=== PATIENT | female | born 1970 | race Two or more races ===

== ENCOUNTER 2016-06-19 12:45 | Emergency (ER) | payer OTHER ==
[2016-06-19 13:05] VITALS: BP 125/83; PULSE 106; TEMP 98.1; BMI 31.2
--- NOTE | 2016-06-19 13:47 | PDOC ---
History of Present Illness - General History Source: Patient, Old Records Exam Limitations: No Limitations - History of Present Illness Initial Comments: 06/19/16 13:58 The patient is a 46-year-old woman with a past medical history of anemia, hypertension, gastroesophageal reflux disorders, depression who presents to the emergency department via walk-in for further evaluation of persistent abdominal pain since yesterday. No recent fall, trauma, strenuous activity,m recent travel and sick contacts. She reports experiencing similar symptoms in the past for which she was informed it was related to muscle spasms. She described her abdominal pain as sharp and cramping in nature, non-radiating and located over the mid epigastrium with a rated 10/10 in severity. Her pain is exacerbated when walking/bending. She also reports associated symptoms of subjective fevers , an episode of diaphoresis and constipation. She expresses concern, as in the past, her symptoms subsequently resolved on its own,however, upon this presentation her symptoms have remained constant. She denies chills, generalized weakness. She denies chest pain, shortness of breath, cough She denies nausea, vomiting, diarrhea, dysuria, hematuria, urinary frequency and urgency, flank pain, vaginal discharge/vaginal bleeding Allergies: None Known Past Surgical History: Uterine fibroid removal. Social History: No tobacco, ETOH and recreational drug use. Primary Care Physician: Dr. Obrien ([facility]iliated [facility]) <Milka Abebe - Last Filed: 06/19/16 14:42> - General History Source: Patient Exam Limitations: No Limitations <Hyun Berkowitz - Last Filed: 06/20/16 07:45> - General Chief Complaint: Pain, Acute Stated Complaint: SIDE PAIN, ABD CRAMPS Time Seen by Provider: 06/19/16 13:43 Past History <Milka Abebe - Last Filed: 06/19/16 14:42> - Past Medical History Anemia: Yes Asthma: No Cancer: No Cardiac Disorders: No CVA: No COPD: No CHF: No Dementia: No Diabetes: No GI Disorders: Yes (REFLUX) Disorders: No HTN: No Hypercholesterolemia: No HIV: Yes (fibroids) Liver Disease: No Psychiatric Problems: Yes (DEPRESSION) Seizures: No Thyroid Disease: No - Surgical History Abdominal Surgery: No Appendectomy: No Cardiac Surgery: No Cholecystectomy: No Lung Surgery: No Neurologic Surgery: No Orthopedic Surgery: No - Immunization History Immunization Up to Date: Yes - Psycho/Social/Smoking Cessation Hx Anxiety: Yes Suicidal Ideation: No Smoking Status: No Smoking History: Never smoked Have you smoked in the past 12 months: No Number of Cigarettes Smoked Daily: 0 Cigars Per Day: 0 Hx Alcohol Use: No Drug/Substance Use Hx: No Substance Use Type: None Hx Substance Use Treatment: No <Hyun Berkowitz - Last Filed: 06/20/16 07:45> - Past Medical History Allergies/Adverse Reactions: Allergies Allergy/AdvReac Type Severity Reaction Status Date / Time No Known Drug Allergies Allergy Verified 06/19/16 13:00 Home Medications: Ambulatory Orders Diazepam [Valium] 5 mg PO DAILY 06/19/16 Paroxetine HCl [Paxil -] 37 mg PO DAILY 06/19/16 Review of Systems - Review of Systems Able to Perform ROS?: Yes Comments:: 06/19/16 14:21 GENERAL/CONSTITUTIONAL: Yes: Subjective fever. Diaphoretic. No: chills, weakness, loss of appetite. HEAD, EYES, EARS, NOSE AND THROAT: No: change in vision, ear pain, discharge, sore throat, throat swelling. CARDIOVASCULAR: No: chest pain, lightheadedness, palpitations, syncope RESPIRATORY: No: cough, shortness of breath, wheezing, hemoptysis, stridor. GASTROINTESTINAL: Yes: Abdominal Pain/ Cramping. Constipation. No: nausea, vomiting, diarrhea, rectal bleeding. GENITOURINARY: No: dysuria, hematuria, frequency, urgency, flank pain. MUSCULOSKELETAL: No: back pain, neck pain, joint pain, muscle swelling or pain SKIN AND BREASTS: No: lesions, pallor, rash or easy bruising. NEUROLOGIC: No: headache, vertigo, paresthesias, weakness ENDOCRINE: No: unexplained weight gain or loss HEMATOLOGIC/LYMPHATIC: No: anemia, easy bleeding, swelling nodes <Milka Abebe - Last Filed: 06/19/16 14:42> *Physical Exam - Vital Signs Last Vital Signs Temp Pulse Resp BP Pulse Ox 98.1 F 106 H 18 125/83 100 06/19/16 13:00 06/19/16 13:00 06/19/16 13:00 06/19/16 13:00 06/19/16 13:00 - Physical Exam Comments: 06/19/16 14:22 GENERAL: The patient is in no acute distress. HEAD: Normal with no signs of trauma. EYES: PERRLA, EOMI, sclera anicteric, conjunctiva clear. ENT: Ears normal, nares patent, oropharynx clear without exudates. Moist mucous membranes. NECK: Normal range of motion, supple without lymphadenopathy, JVD, or masses. LUNGS: Breath sounds equal, clear to auscultation bilaterally. No wheezes, and no crackles. HEART:Regular rate and rhythm, normal S1 and S2 without murmur, rub or gallop. ABDOMEN: Soft, there is some mild tenderness to palpation to the mid- epigastrium. Normoactive bowel sounds. No guarding, no rebound. EXTREMITIES: Normal range of motion, no edema. No clubbing or cyanosis. No erythema, or tenderness. NEUROLOGICAL: Cranial nerves II through XII grossly intact. Normal speech. No focal neurological deficits. MUSCULOSKELETAL: Back non-tender to palpation, no CVA tenderness SKIN: Warm, Dry, normal turgor, no rashes or lesions noted. <Milka Abebe - Last Filed: 06/19/16 14:42> - Vital Signs Last Vital Signs Temp Pulse Resp BP Pulse Ox 98.1 F 106 H 18 125/83 100 06/19/16 13:00 06/19/16 13:00 06/19/16 13:00 06/19/16 13:00 06/19/16 13:00 <Hyun Berkowitz - Last Filed: 06/20/16 07:45> ED Treatment Course - LABORATORY CBC & Chemistry Diagram: 06/19/16 14:08 06/19/16 14:08 <Milka Abebe - Last Filed: 06/19/16 14:42> - LABORATORY CBC & Chemistry Diagram: 06/19/16 14:08 06/19/16 15:04 <Hyun Berkowitz - Last Filed: 06/20/16 07:45> Medical Decision Making - Medical Decision Making 06/19/16 13:47 A portion of this note was documented by scribe services under my direction. I have reviewed the details of the note, within reason, and agree with the documentation with the following case summary and management plan written by me. Nursing documentation reviewed and incorporated into medical decision making THis is a 46 yo F presenting to the ER with a complaint of diffuse abdominal pain Pain located in the right lower abdomen and sometimes the left upper abdomen Pain is currently 10/10 (despite patient appearing comfortable) Pain worse with walking No fevers or chills No diarrhea No recent travel No ill contacts On examination, pt tender in the right mid - lower abdomen No involuntary guarding or rebound tenderness Will do labs Will do CT Pt signed out to Dr. Rain [facility] nml pending CT <Hyun Berkowitz - Last Filed: 06/20/16 07:45> *DC/Admit/Observation/Transfer - Attestations Scribe Attestion: 06/19/16 14:22 Documentation prepared by Milka Abebe, acting as clinical laboratory medical director for Hyun Berkowitz MD. <Milka Abebe - Last Filed: 06/19/16 14:42> - Discharge Dispostion Admit: No <Hyun Berkowitz - Last Filed: 06/20/16 07:45> Diagnosis at time of Disposition: Abdominal pain Qualifiers: Abdominal location: unspecified location Qualified Code(s): R10.9 - Unspecified abdominal pain - Discharge Dispostion Disposition: HOME Condition at time of disposition: Stable - Referrals Referrals: Angela Landaverde MD [Staff Physician] - - Patient Instructions Printed Discharge Instructions: DI for Abdominal Pain-Adult, DI for Diverticulosis Additional Instructions: Thank you for coming in to the ER today Your labs are normal We have reviewed your CT scan with your Please follow up with your primary care physician Please return to the ER for any other concerns or complaints Your CT scan shows diverticulosis. Please do not take any seeds or small nuts, as that could cause an inflammation of your diverticulosis. Please follow up with your doctor and a GI doctor.
[2016-06-19 14:27] LABS: EOSINOPHIL 0.9 % (0-4.5); MCHC 33.6 g/dl (32.0-36.0); MEAN CELL VOLUME 86.3 fl (80-96); NEUTROPHILS 64.7 % (42.8-82.8); PLATELET COUNT 360 K/MM3 (134-434); RDW 13.6 % (11.6-15.6); WHITE BLOOD COUNT 8.5 K/mm3 (4.0-10.0)
[2016-06-19 14:54] LABS: URINE APPEARANCE CLEAR; URINE BILIRUBIN NEGATIVE (NEGATIVE); URINE COLOR STRAW; URINE GLUCOSE (UA) NEGATIVE (NEGATIVE); URINE KETONE NEGATIVE (NEGATIVE); URINE LEUK ESTERASE NEGATIVE (NEGATIVE); URINE NITRITE NEGATIVE (NEGATIVE); URINE PROTEIN NEGATIVE (NEGATIVE); URINE UROBILINOGEN NEGATIVE E.U./dl (0.2-1.0)
[2016-06-19 14:59] LABS: URINE BLOOD 1+ (NEGATIVE)
[2016-06-19 15:00] LABS: URINE MUCUS RARE; URINE RBC 1 /hpf (0-3); URINE WBC <1 /hpf (3-5); YEAST RARE
[2016-06-19 15:43] LABS: ALK PHOS 75 U/L (45-117); ANION GAP 9 (8-16); BILIRUBIN,TOTAL 0.5 mg/dL (0.2-1.0); CALCIUM 8.9 mg/dL (8.5-10.1); CO2 26 mmol/L (21-32); CREATININE 0.7 mg/dL (0.55-1.02); GLUCOSE,RANDOM 89 mg/dL (74-106); SGOT/AST 19 U/L (15-37); SGPT/ALT 28 U/L (12-78); TOT PROT 7.8 g/dl (6.4-8.2)
--- NOTE | 2016-06-19 17:27 | PDOC ---
*Physical Exam - Vital Signs Last Vital Signs Temp Pulse Resp BP Pulse Ox 98.1 F 106 H 18 125/83 100 06/19/16 13:00 06/19/16 13:00 06/19/16 13:00 06/19/16 13:00 06/19/16 13:00 ED Treatment Course - LABORATORY CBC & Chemistry Diagram: 06/19/16 14:08 06/19/16 15:04 - ADDITIONAL ORDERS Additional order review: Laboratory Results 06/19/16 06/19/16 06/19/16 15:04 14:28 14:08 Sodium 140 Cancelled Potassium 4.4 Cancelled Chloride 105 Cancelled Carbon Dioxide 26 Cancelled Anion Gap 9 Cancelled BUN 14 D Cancelled Creatinine 0.7 Cancelled Creat Clearance w eGFR > 60 Cancelled Random Glucose 89 Cancelled Calcium 8.9 Cancelled Total Bilirubin 0.5 D Cancelled AST 19 D Cancelled ALT 28 D Cancelled Alkaline Phosphatase 75 D Cancelled Total Protein 7.8 D Cancelled Albumin 4.0 D Cancelled Lipase 125 Cancelled Urine Color Straw Urine Appearance Clear Urine pH 5.0 Ur Specific [place] 1.012 Urine Protein Negative Urine Glucose (UA) Negative Urine Ketones Negative Urine Blood 1+ H Urine Nitrite Negative Urine Bilirubin Negative Urine Urobilinogen Negative Ur Leukocyte Esterase Negative Urine RBC 1 Urine WBC <1 Urine Mucus Rare Urine Yeast Rare Urine HCG, Qual Negative 06/19/16 14:08 RBC 4.75 MCV 86.3 MCHC 33.6 RDW 13.6 MPV 8.0 Neutrophils % 64.7 Lymphocytes % 21.5 D Monocytes % 11.9 H Eosinophils % 0.9 Basophils % 1.0 D Medical Decision Making - Medical Decision Making 06/19/16 17:20 CBC, BMP 06/19/16 14:08 06/19/16 15:04 CMP Sodium 140 mmol/L (136-145) 06/19/16 15:04 Potassium 4.4 mmol/L (3.5-5.1) 06/19/16 15:04 Chloride 105 mmol/L (98-107) 06/19/16 15:04 Carbon Dioxide 26 mmol/L (21-32) 06/19/16 15:04 Anion Gap 9 (8-16) 06/19/16 15:04 BUN 14 mg/dL (7-18) D 06/19/16 15:04 Creatinine 0.7 mg/dL (0.55-1.02) 06/19/16 15:04 Creat Clearance w eGFR > 60 (>60) 06/19/16 15:04 Random Glucose 89 mg/dL (74-106) 06/19/16 15:04 Calcium 8.9 mg/dL (8.5-10.1) 06/19/16 15:04 Total Bilirubin 0.5 mg/dL (0.2-1.0) D 06/19/16 15:04 AST 19 U/L (15-37) D 06/19/16 15:04 ALT 28 U/L (12-78) D 06/19/16 15:04 Alkaline Phosphatase 75 U/L (45-117) D 06/19/16 15:04 Total Protein 7.8 g/dl (6.4-8.2) D 06/19/16 15:04 Albumin 4.0 g/dl (3.4-5.0) D 06/19/16 15:04 Lipase 125 U/L (73-393) 06/19/16 15:04 CT scan results reviewed. Results given to the patient. *DC/Admit/Observation/Transfer Diagnosis at time of Disposition: Abdominal pain Qualifiers: Abdominal location: unspecified location Qualified Code(s): R10.9 - Unspecified abdominal pain - Discharge Dispostion Disposition: HOME Condition at time of disposition: Stable Admit: No - Referrals Referrals: Angela Landaverde MD [Staff Physician] - - Patient Instructions Printed Discharge Instructions: DI for Abdominal Pain-Adult, DI for Diverticulosis Additional Instructions: Thank you for coming in to the ER today Your labs are normal We have reviewed your CT scan with your Please follow up with your primary care physician Please return to the ER for any other concerns or complaints Your CT scan shows diverticulosis. Please do not take any seeds or small nuts, as that could cause an inflammation of your diverticulosis. Please follow up with your doctor and a GI doctor. - Post Discharge Activity
== END 2016-06-19 17:39 | disposition home or self-care (01) ==
LOC: JER 12:45
DX: R10.9 Unspecified abdominal pain (principal); I10 Essential (primary) hypertension; K21.9 Gastro-esophageal reflux disease without esophagitis; D64.9 Anemia, unspecified; F32.9 Major depressive disorder, single episode, unspecified
CPT/HCPCS: 36415; 74177-TC; 80053; 81003; 81015; 83690; 84703; 85025; 99283-25

== ENCOUNTER 2016-08-24 07:34 | Day surgery (SDC) | payer OTHER ==
[2016-08-24 08:27] VITALS: BMI 34.7
[2016-08-24] MEDS ORDERED: PROPOFOL 20 ML ONE ×2 (08:36)
[2016-08-24 09:32] VITALS: TEMP 97.8
[2016-08-24 09:33] VITALS: BP 116/65; PULSE 70
--- NOTE | 2016-08-25 12:11 | PATH ---
Surgical Pathology Report Patient Name: LAUREN QUINONES [facility]. Rec. #: [id number] /Age/Gender: 1970 (Age: 46) / F Account: [id number] Location: U-ENDOSCOPY Taken: 08/24/2016 Received: 08/24/2016 Reported: 08/25/2016 Physicians: Angela Landaverde M.D. Specimen(s) Received A: BX 2ND PORTION OF DUODENUM/BULB B: BX ANTRUM/ANTRAL ULCER C: BX DISTAL/MID ESOPHAGUS Clinical History Abdominal pain Gastritis, hiatal hernia, gastric ulcer Final Diagnosis A. DUODENUM, SECOND PORTION AND BULB, BIOPSY: DUODENAL MUCOSA WITH NO PATHOLOGIC CHANGES. NO HISTOLOGIC EVIDENCE OF GLUTEN SENSITIVE ENTEROPATHY (CELIAC SPRUE) IDENTIFIED. B. STOMACH, ANTRUM, BIOPSY: GASTRIC MUCOSA WITH ULCERATION, REACTIVE GASTROPATHY, AND MILD CHRONIC GASTRITIS. IMMUNOSTAIN FOR H. PYLORI IS NEGATIVE. C. ESOPHAGUS, DISTAL AND MID, BIOPSY: SQUAMOUS EPITHELIUM WITH NO PATHOLOGIC CHANGES. NO INTESTINAL METAPLASIA IDENTIFIED (NO SCHUMACHER'S IDENTIFIED). NO EOSINOPHILIC ESOPHAGITIS IDENTIFIED. Electronically Signed Chato Cifuentes M.D. Gross Description A. Received in formalin, labeled "biopsy second portion of duodenum/bulb" are 3 herrera, irregular portions of soft tissue averaging 0.4 cm. in greatest dimension. The specimens are submitted in toto in one cassette. B. Received in formalin, labeled "biopsy antrum/antral ulcer" are 5 herrera, irregular portions of soft tissue ranging from 0.2-0.4 cm. in greatest dimension. The specimens are submitted in toto in one cassette. C. Received in formalin, labeled "biopsy distal/mid esophagus" are 4 herrera, irregular portions of soft tissue ranging from 0.2-0.4 cm. in greatest dimension. The specimens are submitted in toto in one cassette. DL/08/24/2016 saudi08/24/2016
== END 2016-08-24 10:27 | disposition home or self-care (01) ==
LOC: JASU-ENDO 07:34
PROVIDERS: ATTEND Internal Medicine Gastroenterology
PROC: 0DB68ZX Excision of Stomach, Via Natural or Artificial Opening Endoscopic, Diagnostic (ICD-10-PCS; 2016-08-24)
PROC: 0DB28ZX Excision of Middle Esophagus, Via Natural or Artificial Opening Endoscopic, Diagnostic (ICD-10-PCS; 2016-08-24)
PROC: 0DB38ZX Excision of Lower Esophagus, Via Natural or Artificial Opening Endoscopic, Diagnostic (ICD-10-PCS; 2016-08-24)
PROC: 0DB98ZX Excision of Duodenum, Via Natural or Artificial Opening Endoscopic, Diagnostic (ICD-10-PCS; principal; 2016-08-24 09:00)
DX: K21.9 Gastro-esophageal reflux disease without esophagitis (principal); K44.9 Diaphragmatic hernia without obstruction or gangrene; K29.70 Gastritis, unspecified, without bleeding
CPT/HCPCS: 88305-TC; 88342-TC

== ENCOUNTER 2017-02-06 11:06 | Emergency (ER) | payer OTHER ==
[2017-02-06 11:19] VITALS: BP 131/72; PULSE 79; TEMP 97.5; BMI 34.5
[2017-02-06] MEDS ORDERED: ALPRAZolam 0.25 MG TABLET PO ONE (11:58)
[2017-02-06] MEDS ORDERED: ALPRAZolam 0.25 MG TABLET ONE (12:03)
--- NOTE | 2017-02-06 12:44 | PDOC ---
History of Present Illness - General Chief Complaint: Psychiatric Stated Complaint: anxious Time Seen by Provider: 02/06/17 11:36 History Source: Patient Exam Limitations: No Limitations - History of Present Illness Initial Comments: Patient is a 46-year-old female with history of severe anxiety currently under the care of psychiatry presents emergency department today asking for medication to help with an acute anxiety attack. Patient usually takes Xanax or Valium however does not have any medication. Patient is currently going through an eviction process and states that she feels threatened by her landlord. Denies any chest pain or shortness of breath, no palpitations, denies feeling that she may hurt herself or others. No flight of ideas. Past Medical History: Anxiety, GERD. Allergies: No known allergies Medications: Pantoprazole, Valium, Paxil Family History: Non-contributory Social History: Denies smoking, alcohol use, or IVDU Vital signs on arrival are notable for pulse of 96. Review of Systems GENERAL/CONSTITUTIONAL: No fever or chills. No weakness. No weight change. HEAD, EYES, EARS, NOSE AND THROAT: No change in vision. No ear pain or discharge. No sore throat. CARDIOVASCULAR: No chest pain or shortness of breath. RESPIRATORY: No cough, wheezing, or hemoptysis. GASTROINTESTINAL: No nausea, vomiting, diarrhea or constipation. No rectal bleeding. GENITOURINARY: No dysuria, frequency, or change in urination. MUSCULOSKELETAL: No joint or muscle swelling or pain. No neck or back pain. SKIN AND BREASTS: No rash or easy bruising. NEUROLOGIC: No headache, vertigo, loss of consciousness, or loss of sensation. PSYCHIATRIC: Anxiety ENDOCRINE: No increased thirst. No abnormal weight change. HEMATOLOGIC/LYMPHATIC: No anemia, easy bleeding, or history of blood clots. ALLERGIC/IMMUNOLOGIC: No hives or skin allergy. No latex allergy. Physical Exam: GENERAL: The patient is awake, alert, and fully oriented, in no acute distress. EYES: Pupils equal, round and reactive to light, extraocular movements intact, sclera anicteric, conjunctiva clear. ENT: Ears normal, nares patent, oropharynx clear without exudates. Moist mucous membranes. No uvula deviation NECK: Normal range of motion, supple without lymphadenopathy, JVD, or masses. LUNGS: Breath sounds equal, clear to auscultation bilaterally. No wheezes, and no crackles. HEART: Regular rate and rhythm, normal S1 and S2 without murmur, rub or gallop. ABDOMEN: Soft, nontender, normoactive bowel sounds. No guarding, no rebound. No masses. No bruising or abrasions MUSCULOSKELETAL: Normal range of motion, no edema. No clubbing or cyanosis. No cords, erythema, or tenderness. No CVA Tenderness with fist. NEUROLOGICAL: Cranial nerves II through XII grossly intact. Normal speech, normal gait. PSYCH: Anxious, normal affect SKIN: Warm, Dry, normal turgor, no rashes or lesions noted. Past History - Past Medical History Allergies/Adverse Reactions: Allergies No Known Drug Allergies Allergy (Verified 02/06/17 11:38) Home Medications: Ambulatory Orders Paroxetine HCl [Paxil -] 37 mg PO DAILY 06/19/16 Ranitidine [Zantac -] 150 mg PO DAILY 08/24/16 Alprazolam [Xanax] 0.5 mg PO TID #9 tablet MDD 3 02/06/17 Surgical History: Yes: No Surgical History LMP: 11/22/11 - Immunization History Immunization Up to Date: Yes Tetanus Status: Unknown - Social History Smoking History: No Smoking Status: Never smoked Number of Cigarettes Per Day: 0 Cigars Per Day: 0 Alcohol Use: none Drug Use: none *Physical Exam - Vital Signs Last Vital Signs Temp Pulse Resp BP Pulse Ox 97.5 F L 79 18 131/72 100 02/06/17 11:16 02/06/17 11:16 02/06/17 11:16 02/06/17 11:16 02/06/17 11:16 Plan - Progress Note Progress Note: 02/06/17 12:40 A/P: Patient here for increased anxiety, patient reports she is recently being evicted from her apartment has a history of anxiety is currently on disability because of it. Patient states that she ran out of her Valium and has been having increased anxiety. Xanax 0.5 given while in emergency department, patient states relief of anxious feeling and states she feels better also given Zantac for heartburn after eating tomato sauce. She will start her pantoprazole tomorrow. Will give prescription for Xanax for 2 days, follow-up with psychiatry. Patient is well-appearing, no anxiety noted upon discharge, patient resting comfortably. - Medications Given in the ED: ED Medications Discontinued Medications Generic Name Dose Route Start Last Admin Trade Name Brad PRN Reason Stop Dose Admin Alprazolam 0.5 mg 02/06/17 11:58 02/06/17 12:06 Xanax - PO 02/06/17 11:59 0.5 mg ONCE ONE Administration *DC/Admit/Observation/Transfer Diagnosis at time of Disposition: History of anxiety - Discharge Dispostion Disposition: HOME Condition at time of disposition: Good Admit: No - Prescriptions Prescriptions: Alprazolam [Xanax] 0.5 mg PO TID #9 tablet MDD 3 - Referrals Referrals: Papito Longoria, [employer] [Nurse Practitioner] - - Patient Instructions Printed Discharge Instructions: Anxiety and Panic Attacks (Alternative Therapy) Additional Instructions: Please follow-up with your therapist, return to emergency Department with any increased pain chest pain shortness of breath or any other concerns.
[2017-02-06] MEDS ORDERED: RANITIDINE HCL 150 MG TABLET (FP) PO ONE (12:49)
[2017-02-06] MEDS ORDERED: RANITIDINE HCL 150 MG TABLET (FP) ONE (12:51)
== END 2017-02-06 12:53 | disposition home or self-care (01) ==
LOC: JERFT 11:06
DX: F41.8 Other specified anxiety disorders (principal)
CPT/HCPCS: 99281-25

== ENCOUNTER 2022-02-13 15:52 | Emergency (ER) | payer OTHER ==
[2022-02-13 16:11] VITALS: BP 136/88; PULSE 89; RESP 18; TEMP 98.5; BMI 35.8
[2022-02-13] MEDS ORDERED: ACETAMINOPHEN 325 MG TABLET (FP) PO ONE (18:14)
[2022-02-13] MEDS ORDERED: ACETAMINOPHEN 325 MG TABLET (FP) ONE (18:25)
[2022-02-13 18:49] LABS: CALCIUM 9.8 mg/dL (8.5-10.1)
[2022-02-13 18:50] LABS: BLOOD UREA NITROGEN 20.1 mg/dL (7-18)
[2022-02-13 18:54] LABS: CREATININE 0.8 mg/dL (0.55-1.3)
== END 2022-02-13 19:52 | disposition home or self-care (01) ==
LOC: JER 15:52
DX: R79.9 Abnormal finding of blood chemistry, unspecified (principal)
CPT/HCPCS: 36415; 80048; 93005; 93010; 99283-25